=== PATIENT | female | born 1955 | race Hispanic/Latino ===

== ENCOUNTER → 2023-03-17 | Outpatient (CLI) | payer OTHER ==
[~2023-03-17] MED LIST: SIMV40TA59 PO
== END | disposition home or self-care (01) ==
LOC: OIH 07:57
PROVIDERS: ATTEND Internal Medicine Cardiovascular Disease
DX: Z13.6 Encounter for screening for cardiovascular disorders (principal); R01.1 Cardiac murmur, unspecified
CPT/HCPCS: 75571

== ENCOUNTER → 2023-04-05 | Outpatient (CLI) | payer MEDICARE, OTHER | END | disposition home or self-care (01) | LOC: RAH 12:47 | PROVIDERS: ATTEND Internal Medicine Cardiovascular Disease | DX: I34.0 Nonrheumatic mitral (valve) insufficiency (principal); I51.7 Cardiomegaly | CPT/HCPCS: 93306 ==